=== PATIENT | male | born 1950 | race Caucasian/White ===

== ENCOUNTER 2016-05-08 17:10 | Emergency (ER) | payer OTHER ==
--- NOTE | 2016-05-08 18:07 | PROVIDER DOCUMENTATION ---
HPI-EENT General - General Source: patient - History of Present Illness-EENT General EENT Location: reports: eye (R) Onset/Duration: reports: this morning - Eyes Eye Problem Symptoms: reports: decrease vision Apparent Injury?: No Eye Problem Context: reports: none <Deysi Gramajo - Last Filed: 05/08/16 18:03> <Aleisha Helms - Last Filed: 05/08/16 18:57> - General Chief Complaint: Eye Complaint Stated Complaint: "POSS STROKE" Time Seen by Provider: 05/08/16 17:45 Allergies/Adverse Reactions: Patient Allergies Allergy/AdvReac Type Severity Reaction Status Date / Time No Known Allergies Allergy Verified 12/10/13 17:01 Home Medications: Home Medication List Medication Instructions Recorded Confirmed Last Taken Type Warfarin [Coumadin] 2 mg DAILY 12/10/13 12/10/13 12/07/13 History Aspirin 81 mg PO DAILY #0 tab.chew 12/11/13 Unknown Rx Nicotine Patch [Nicoderm Patch] 21 mg TD DAILY #0 patch.td24 12/11/13 Unknown Rx Pravastatin Sodium [Pravachol] 20 mg PO DAILY #30 tablet 12/11/13 Unknown Rx Warfarin [Coumadin] 2 mg PO HS #30 tablet 12/11/13 Unknown Rx Prednisone 20 mg PO BID #10 tablet 05/08/16 Unknown Rx Sulfamethoxazole/Trimethoprim 2 each PO BID #40 tablet 05/08/16 Unknown Rx [Bactrim Ds Tablet] - History of Present Illness-EENT General Nature of Presenting Problem: 65 yo M presents to the ER with complaint of loss of vision in R eye since awakening. Denies any HAIDER associated or any hx of a-fib. (Deysi Gramajo) Review of Systems - Adult - REVIEW OF SYSTEMS - ADULT Constitutional: denies: chills, fever Eyes: reports: decreased vision. denies: eye pain Ears, Nose, Mouth & Throat: reports: no symptoms reported Cardiovascular: denies: chest pain, palpitations Respiratory: denies: cough, shortness of breath Gastrointestinal: reports: no symptoms reported Genitourinary: reports: no symptoms reported Musculoskeletal: reports: no symptoms reported Integumentary: reports: no symptoms reported Neurological: denies: dizziness/vertigo, headache/migraines Psychiatric: reports: no symptoms reported Endocrine: reports: no symptoms reported Hematologic/Lymphatic: reports: no symptoms reported Allergic/Immunologic: reports: no symptoms reported All Other Systems: Reviewed and Negative <Deysi Gramajo - Last Filed: 05/08/16 18:03> Past History - Adult - PAST MEDICAL HISTORY-ADULT Review of Records: reports: Nursing Assessment Review, Medications Reviewed Cardiovascular: reports: hyperlipidemia Endocrine/Immune: reports: other (blood clots in femoral arteries) - PRIOR SURGERIES/PROCEDURES Surgical/Procedure History: reports: other (femoral artery graft) - IMMUNIZATION STATUS Childhood Immunizations: See Nurse Assessment Flu Vaccine: See Nurse Assessment <Deysi Graamjo - Last Filed: 05/08/16 18:03> Physical Exam- EENT - Physical Exam EENT General Appearance: alert, no apparent distress Eye Exam: right eye: vision changes (states it is black and blurry, can hardly see), other (while covering L eye, pt was able to track mirror with R eye), bilateral eye: PERRL, EOMI Ear Exam: bilateral ear: auricle normal, canal normal, TM normal Throat Exam: normal mouth inspection, pharynx normal Neck: supple, normal inspection Respiratory: no respiratory distress, no accessory muscle use Cardiovascular: normal peripheral pulses, regular rate, rhythm Back Exam: no CVA tenderness, no vertebral tenderness Extremity: normal gait, normal inspection Integumentary: normal color, warm/dry Neurologic: grossly normal, no motor/sensory deficits Psych/Mental Status: normal mood/affect, normal thought content, normal thought process, oriented x 3 <Deysi Gramajo - Last Filed: 05/08/16 18:03> Progress - CHANGE OF SHIFT REPORT (ED Provider) Report Given and Care Transferred to:: Dr. Gerard Time of Transfer: 18:06 Items Pending: Labs <Deysi Gramajo - Last Filed: 05/08/16 18:03> - CT/MRI 1 MRI Study: Brain Impression: Normal MRI Results: right maxillary sinusitis noted <Aleisha Helms - Last Filed: 05/08/16 18:57> Departure <Dyesi Gramajo - Last Filed: 05/08/16 18:03> - Departure Time of Disposition Order: 18:57 Certified Medical Emergency: Emergent <Aleisha Helms - Last Filed: 05/08/16 18:57> - Departure DIAGNOSIS: Sinusitis Qualifiers: Sinusitis location: maxillary Chronicity: unspecified Qualified Code(s): J32.0 - Chronic maxillary sinusitis Disposition: HOME 01 Condition: Stable Additional Instructions: ED Follow Up Instructions: You have been treated by a care provider in the Emergency Department. These instructions are being provided to you so you can have an understanding of how to care for yourself upon discharge. Upon discharge from the Emergency Department, you are responsible for making arrangements for follow-up care by a physician of your choice. Take all prescribed medications as directed. Return to the Emergency Department immediately for any new or worsening symptoms. You may call the Physician Referral phone number at [phone] to obtain a list of Physicians who are taking new patients. Prescriptions: Sulfamethoxazole/Trimethoprim [Bactrim Ds Tablet] 2 each PO BID #40 tablet Prednisone 20 mg PO BID #10 tablet Referrals: Chai Arellano MD [STAFF PHYSICIAN] - Forms: Return to School/Parent Work Instructions: Sinusitis, [id number], Prednisone tablets, Sulfamethoxazole; Trimethoprim, SMX-[id number] tablets Attestation - Scribe Verification/Attestation Scribe:: Deysi Gramajo Acting as Scribe for:: Buzz Marie Scribe documention review:: This chart was documented by a scribe and accurately reflects the service the provider performed and the decisions made by the provider. <Deysi Gramajo - Last Filed: 05/08/16 18:03> - Scribe Verification/Attestation Scribe:: Aleisha Helms Acting as Scribe for:: Aba Gerard Scribe documention review:: This chart was documented by a scribe and accurately reflects the service the provider performed and the decisions made by the provider. <Aleisha Helms - Last Filed: 05/08/16 18:57> Physician Attestation
[2016-05-08 18:12] LABS: MANUAL DIFF NEEDED? NO
[2016-05-08 18:19] LABS: BASO% 0.3 % (0.0-0.8); EOS# 0.16 X1000 (0.0-0.7); EOS% 1.4 % (0.0-10.0); HEMATOCRIT 46.3 % (42.0-52.0); HEMOGLOBIN 15.4 g/dL (14.0-18.0); IMM GRAN# 0.03 X1000 (0.0-0.04); IMM GRAN% 0.3 % (0.0-0.5); LYMPH# 2.99 X1000 (1.2-3.4); LYMPH% 26.5 % (20.5-51.1); MCH 28.3 PG (27-31); MCHC 33.3 g/dL (33-37); MCV 85.1 FL (81-99); MONO# 0.87 X1000 (0.11-0.59); MONO% 7.7 % (1.7-9.3); MPV 10.3 FL (7.4-10.4); NEUT% 63.8 % (42.2-75.2); PLT 292 X1000 (130-400); RBC 5.44 XMIL (4.7-6.1)
--- NOTE | 2016-05-08 18:27 | ED EKG INTERP ---
EKG Interpretation - EKG Time of EKG reading by physician:: 17:49 EKG Read and Signed by:: Aba Gerard EKG Interpretation (*Must complete 3 of following elements*): Normal Rate: 90 Rhythm: sinus rhythm with premature atrial complexes [place]: normal
[2016-05-08 18:35] LABS: AGAP 12; ALBUMIN 3.9 g/dL (3.5-5.0); ALKALINE PHOSPHATASE 73 U/L (32-122); BUN 17 mg/dL (8-22); CHLORIDE 104 mmol/L (98-107); COSMO 276; GOT 15 U/L (10-34); GPT 12 U/L (10-44); INR 1.52 (0.86-1.15); POTASSIUM 3.9 mmol/L (3.5-5.1); PROTIME 18.5 Seconds (12.1-15.5); SODIUM 137 mmol/L (136-145); TCO2 21 mmol/L (25-35); TOTAL PROTEIN 7.2 g/dL (6.3-8.3)
--- NOTE | 2016-05-08 18:41 | EKG Report ---
Test Performed on : 05/08/2016 5:49:47 PM Test Reason : vision loss Blood Pressure : / mmHG Vent. Rate : 090 BPM Atrial Rate : 090 BPM P-R Int : 142 ms QRS Dur : 092 ms QT Int : 386 ms P-R-T Axes : 051 036 054 degrees QTc Int : 472 ms Sinus rhythm. with premature atrial complexes. Otherwise normal ECG When compared with ECG of 10-DEC-2013 22:00, premature atrial complexes. are now present Unconfirmed Result
[2016-05-08 19:03] VITALS: BP 167/98
--- NOTE | 2016-05-08 20:32 | Diag Imaging Result Document ---
PROCEDURE NAME: HEAD W/O CONTRAST - 05/08/2016 CT HEAD WITHOUT CONTRAST: COMPARISON: 12/10/2013. 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 There is no definite acute infarct given the limited sensitivity of CT versus MRI. There is no discrete intracranial mass, mass effect, or intracranial hemorrhage. There is chronic right maxillary sinusitis that is stable. Surrounding soft tissues and bony structures are essentially unremarkable, otherwise. IMPRESSION: Advanced chronic changes as described that are stable. No definite acute intracranial pathology.
== END 2016-05-08 19:09 | disposition home or self-care (01) ==
LOC: P.ED 17:10
DX: J32.0 Chronic maxillary sinusitis (principal); H53.9 Unspecified visual disturbance; E78.5 Hyperlipidemia, unspecified; Z86.718 Personal history of other venous thrombosis and embolism; Z79.899 Other long term (current) drug therapy; Z79.01 Long term (current) use of anticoagulants; Z79.82 Long term (current) use of aspirin
CPT/HCPCS: 70450; 80053; 82948; 85025; 85610; 93005

== ENCOUNTER 2018-11-19 20:07 | Inpatient (IN) ==
--- NOTE | 2018-11-19 20:12 | PROVIDER DOCUMENTATION ---
HPI-Syncope/Dizziness - General Chief Complaint: Syncope Stated Complaint: Syncope Time Seen by Provider: 11/19/18 20:15 Source: patient Allergies/Adverse Reactions: Patient Allergies Allergy/AdvReac Type Severity Reaction Status Date / Time No Known Allergies Allergy Verified 11/07/17 10:54 Home Medications: Home Medication List Medication Instructions Recorded Confirmed Last Taken Type Aspirin 81 mg PO DAILY #0 tab.chew 12/11/13 05/24/18 05/20/18 Rx Pravastatin Sodium [Pravachol] 20 mg PO DAILY #30 tablet 12/11/13 05/24/18 05/23/18 Rx Tamsulosin [Flomax] 0.4 mg PO BID 09/11/17 05/24/18 05/23/18 History Docusate Sodium [Colace] 200 mg PO QHS capsule 09/19/17 05/24/18 05/23/18 Rx Polyethylene Glycol 3350 [Miralax] 17 gm PO BID powder, packet 09/19/17 05/24/18 11/05/17 Rx Warfarin [Coumadin] 2 mg PO [id number] tablet 09/19/17 05/24/18 05/20/18 Rx Finasteride [Proscar] 5 mg PO DAILY 11/04/17 05/24/18 05/24/18 History Ciprofloxacin HCl [Cipro] 500 mg PO BID #14 tab 10/09/18 Unknown Rx - History of Present Illness-Syncope/Dizzy Nature of Presenting Problem: Patient is a 67 year old white male who takes coumadin for blood clots who presents by EMS for evaluation of syncopal episode after sitting up. Denies chest pain,SOB,melena,nausea,vomiting, or history of CAD. EMS report fingerstick glucose of 181. Prior Episodes: reports: single episode today Onset/Duration: reports: abrupt Timing: reports: gone now Position/Activity at time of episode: reports: sitting (after defacating) Context: reports: almost passed out Review of Systems - Adult - REVIEW OF SYSTEMS - ADULT Constitutional: denies: chills, fever Eyes: reports: no symptoms reported Ears, Nose, Mouth & Throat: denies: ear discharge, throat pain Cardiovascular: denies: chest pain Respiratory: denies: shortness of breath Gastrointestinal: reports: see HPI Genitourinary: reports: no symptoms reported Musculoskeletal: reports: no symptoms reported Integumentary: reports: no symptoms reported Neurological: reports: no symptoms reported Psychiatric: reports: no symptoms reported Endocrine: reports: no symptoms reported Hematologic/Lymphatic: reports: no symptoms reported Allergic/Immunologic: reports: no symptoms reported All Other Systems: Reviewed and Negative Past History - Adult - PAST MEDICAL HISTORY-ADULT Review of Records: reports: Old Records Reviewed, Nursing Assessment Review, Medications Reviewed, Social history reviewed & non-contributory. Major Childhood Illnesses: reports: denies history Cardiovascular: reports: hyperlipidemia Respiratory: reports: denies history Gastrointestinal: reports: denies history Obstetrical/Gynecological: reports: denies history Genitourinary: reports: retention, other Musculoskeletal: reports: denies history Neurological: reports: denies history Endocrine/Immune: reports: other Other Conditions: reports: denies history - PRIOR SURGERIES/PROCEDURES Surgical/Procedure History: reports: other - IMMUNIZATION STATUS Childhood Immunizations: See Nurse Assessment Flu Vaccine: See Nurse Assessment - FAMILY HISTORY Family History: reviewed, not pertinent - SOCIAL HISTORY Smoking: denies Substance Use: denies Alcohol Use Frequency: occasionally Living Situation: family Physical Exam-General - PHYSICAL EXAM-ADULT Initial Vital Signs Reviewed: Yes - CONSTITUTIONAL General Appearance: appears well, alert, no apparent distress - EYES Eyes: other (clear) - HEAD, EARS, NOSE, MOUTH & THROAT HENMT: normocephalic/atraumatic - NECK Neck: non-tender, full range of motion, supple - RESPIRATORY Respiratory: lungs clear - CARDIOVASCULAR Cardiovascular: regular rate, rhythm - GASTROINTESTINAL (ABDOMEN) Abdominal Exam: normal bowel sounds, non tender, soft - LYMPHATIC Lymphatic: no adenopathy - MUSCULOSKELETAL Back Exam: normal inspection Extremity: normal range of motion Peripheral Pulses: radial (R): 2+, radial (L): 2+ - SKIN Integumentary: normal color, normal turgor - NEUROLOGIC Neurologic: grossly normal - PSYCHIATRIC Psych/Mental Status: normal mood/affect, oriented x 3, anxious Progress - PLAN OF CARE/RESULTS Progress/Plan/Lab Results: Vital Signs - 8 hr 11/19/18 21:30 11/19/18 22:00 11/19/18 22:54 Temperature 98.1 F Pulse Rate 103 H 86 97 H Pulse Rate [Sitting] Pulse Rate [Standing] Pulse Rate [Supine] Respiratory Rate 16 16 16 Blood Pressure 106/58 119/66 134/77 Blood Pressure [Sitting] Blood Pressure [Standing] Blood Pressure [Supine] O2 Sat by Pulse Oximetry 97 96 96 11/19/18 23:22 Temperature Pulse Rate Pulse Rate [Sitting] 98 H Pulse Rate [Standing] 110 H Pulse Rate [Supine] 88 Respiratory Rate Blood Pressure Blood Pressure [Sitting] 124/81 Blood Pressure [Standing] 94/72 Blood Pressure [Supine] 128/78 O2 Sat by Pulse Oximetry Laboratory Results - last 24 hr 11/19/18 11/19/18 11/19/18 20:25 20:25 20:25 WBC 13.71 H RBC 4.90 Hgb 8.8 L Hct 31.1 L MCV 63.5 L MCH 18.0 L MCHC 28.3 L RDW Std Deviation 20.0 H Plt Count 504 H MPV 10.0 Immature Gran % (Auto) 0.3 Neut % (Auto) 78.6 H Lymph % (Auto) 12.3 L Gilchrist % (Auto) 7.1 Eos % (Auto) 1.4 Baso % (Auto) 0.3 Immature Gran # (Auto) 0.04 Neut # (Auto) 10.79 H Lymph # (Auto) 1.68 Gilchrist # (Auto) 0.97 H Eos # (Auto) 0.19 Baso # (Auto) 0.04 PT INR Sodium 139 Potassium 4.0 Chloride 104 Carbon Dioxide 19 L Anion Gap 14 BUN 21 Creatinine 1.1 Estimated GFR/1.73 m2 > 60 BUN/Creatinine Ratio 19 Glucose 135 H POC Glucose Calculated Osmolality 283 Calcium 9.4 Magnesium 1.8 Total Bilirubin 0.30 AST 43 H ALT 12 Alkaline Phosphatase 85 Creatine Kinase 103 Troponin T < 0.010 Total Protein 6.9 Albumin 3.7 Globulin 3.0 Albumin/Globulin Ratio 1.0 Stool Occult Blood Stool Occult Blood #2 Blood Type Antibody Screen Crossmatch 11/19/18 11/19/18 11/19/18 20:25 20:30 20:33 WBC RBC Hgb Hct MCV MCH MCHC RDW Std Deviation Plt Count MPV Immature Gran % (Auto) Neut % (Auto) Lymph % (Auto) Gilchrist % (Auto) Eos % (Auto) Baso % (Auto) Immature Gran # (Auto) Neut # (Auto) Lymph # (Auto) Gilchrist # (Auto) Eos # (Auto) Baso # (Auto) PT 17.2 H INR 1.34 Sodium Potassium Chloride Carbon Dioxide Anion Gap BUN Creatinine Estimated GFR/1.73 m2 BUN/Creatinine Ratio Glucose POC Glucose 150 H Calculated Osmolality Calcium Magnesium Total Bilirubin AST ALT Alkaline Phosphatase Creatine Kinase Troponin T Total Protein Albumin Globulin Albumin/Globulin Ratio Stool Occult Blood Stool Occult Blood #2 Blood Type O POSITIVE Antibody Screen NEGATIVE Crossmatch See Detail 11/19/18 11/19/18 21:10 23:54 WBC RBC Hgb 5.8 L* D Hct 21.4 L D MCV MCH MCHC RDW Std Deviation Plt Count MPV Immature Gran % (Auto) Neut % (Auto) Lymph % (Auto) Gilchrist % (Auto) Eos % (Auto) Baso % (Auto) Immature Gran # (Auto) Neut # (Auto) Lymph # (Auto) Gilchrist # (Auto) Eos # (Auto) Baso # (Auto) PT INR Sodium Potassium Chloride Carbon Dioxide Anion Gap BUN Creatinine Estimated GFR/1.73 m2 BUN/Creatinine Ratio Glucose POC Glucose Calculated Osmolality Calcium Magnesium Total Bilirubin AST ALT Alkaline Phosphatase Creatine Kinase Troponin T Total Protein Albumin Globulin Albumin/Globulin Ratio Stool Occult Blood POSITIVE A Stool Occult Blood #2 Blood Type Antibody Screen Crossmatch Orders Category Date Time Status [facility] Routine AdmDCTranf 11/19/18 22:58 Active Activity - Strict Bedrest ORDERED Care 11/19/18 22:57 Active Cardiac Monitoring DIRECTED Care 11/19/18 20:07 Active Misc. NRSG Communication Order DIRECTED Care 11/19/18 21:46 Active Orthostatic Vital Signs NOW Care 11/19/18 20:12 Active Resuscitation Status Routine Care 11/19/18 22:57 Ordered Vital Signs Order Q 4-HR ASSESS Care 11/19/18 22:57 Active Z-Document. for Tele Applied ORDERED Care 11/19/18 22:58 Active NPO Diet 11/19/18 22:59 Active CBC WITH ELECTRONIC DIFF [HEME] Stat Lab 11/19/18 20:25 Completed CK PROFILE [SP CHEM] Stat Lab 11/19/18 20:25 Completed COMPREHENSIVE METABOLIC PANEL [CHEM] Stat Lab 11/19/18 20:25 Completed HGB AND HCT [HEME] Q4H Lab 11/19/18 23:54 Completed HGB AND HCT [HEME] Q4H Lab 11/20/18 02:59 Ordered HGB AND HCT [HEME] Q4H Lab 11/20/18 06:59 Ordered LRPC (RED CELLS) [BBK] Stat Lab 11/19/18 20:25 Completed MAGNESIUM [CHEM] Stat Lab 11/19/18 20:25 Completed OCCULT BLOOD SCREEN STOOL PL Stat Lab 11/19/18 21:10 Completed PT [PROTIME WITH INR] [COAG] Stat Lab 11/19/18 20:30 Completed TROPONIN T Stat Lab 11/19/18 20:25 Completed TYPE & SCREEN [BBK] Stat Lab 11/19/18 20:25 Completed 0.9% Sodium Chloride Inj [Ns] 1,000 ml Med 11/19/18 22:57 Active IV 125 mls/hr 0.9% Sodium Chloride Inj [Ns] 1,000 ml Med 11/19/18 20:14 Discontinued IV 999 mls/hr Morphine Med 11/19/18 22:57 Active 2 mg IV Q2H PRN PRN Ondansetron [Zofran] Med 11/19/18 22:57 Active 4 mg IV Q4H PRN PRN Pantoprazole [Protonix] Med 11/19/18 21:00 Discontinued 40 mg IV BID Pantoprazole [Protonix] Med 11/20/18 09:00 Discontinued 40 mg IV BID Pantoprazole [Protonix] Med 11/19/18 21:35 Discontinued 40 mg IV NOW ONE Sodium Chloride 0.9% Med 11/19/18 23:15 Discontinued 10 ml INJ DIRECTED Sodium Chloride 0.9% Med 11/19/18 21:35 Discontinued 10 ml INJ NOW ONE Sodium Chloride 0.9% Med 11/19/18 23:02 Discontinued 10 ml INJ NOW ONE Oxygen Device Routine Oth 11/19/18 22:59 Completed Telemetry [OM.EQ] Routine Oth 11/19/18 22:57 Active EKG [EKG] Stat Ther 11/19/18 20:07 Ordered Transfer/Admit Order [TRANSFER] Routine Transfer 11/19/18 23:01 Completed Result Diagrams: 11/20/18 03:05 11/19/18 20:25 Departure - Departure Date of Disposition Decision: 11/20/18 Time of Disposition Decision: 03:30 DIAGNOSIS: GI bleed Qualifiers: GI bleed type/associated pathology: unspecified gastrointestinal hemorrhage type Qualified Code(s): K92.2 - Gastrointestinal hemorrhage, unspecified Episode of syncope Qualifiers: Syncope type: unspecified Qualified Code(s): R55 - Syncope and collapse Disposition: ADMITTED INPATIENT 09 Certified Medical Emergency: Emergent Condition: Stable - Critical Care Note This patient required my direct & personal management of CC.: Yes Total Time (mins): 135 Critical Care Statement: This patient required my direct personal management to treat or rule out processes, the absence of which, could potentiallly result in sudden, clinically significant life or limb threatening deterioration. Attestation - Physician/ JENNI Attestation Patient care was provided by Advanced Practice Provider:: No The physician spent face to face time with patient:: Yes Advanced Practice Provider documentation review:: Supervising physician onsite and consulted in the evaluation and care of this patient. The physician did have a face to face encounter with the patient.
[2018-11-19] MEDS ORDERED: NS 1,000 ML IV ONE ×2 (20:14→22:57)
[2018-11-19 20:46] LABS: BASO# 0.04 X1000 (0.0-0.2); BASO% 0.3 % (0.0-0.8); EOS# 0.19 X1000 (0.0-0.7); EOS% 1.4 % (0.0-10.0); HEMATOCRIT 31.1 % (42.0-52.0); HEMOGLOBIN 8.8 g/dL (14.0-18.0); IMM GRAN# 0.04 X1000 (0.0-0.04); IMM GRAN% 0.3 % (0.0-0.5); LYMPH# 1.68 X1000 (1.2-3.4); LYMPH% 12.3 % (20.5-51.1); MCHC 28.3 g/dL (33-37); MCV 63.5 FL (81-99); MONO# 0.97 X1000 (0.11-0.59); MONO% 7.1 % (1.7-9.3); NEUT# 10.79 X1000 (1.4-6.5); NEUT% 78.6 % (42.2-75.2); PLT 504 X1000 (130-400); WBC 13.71 X1000 (4.8-10.8)
[2018-11-19 20:54] LABS: INR 1.34; PROTIME 17.2 Seconds (11.0-16.0)
[2018-11-19 20:59] LABS: ESTIMATED GFR > 60
[2018-11-19] MEDS ORDERED: PROTONIX IV SCH (21:00)
[2018-11-19 21:12] LABS: AGAP 14; ALBUMIN 3.7 g/dL (3.5-5.0); ALKALINE PHOSPHATASE 85 U/L (32-122); BUN 21 mg/dL (8-22); CALCIUM 9.4 mg/dL (8.8-10.2); CHLORIDE 104 mmol/L (98-107); CK PROFILE 103 U/L (24-204); COSMO 283; CREATININE 1.1 mg/dL (0.7-1.2); GLUCOSE 135 mg/dL (70-104); GOT 43 U/L (10-34); GPT 12 U/L (10-44); MAGNESIUM 1.8 mg/dL (1.5-2.7); SODIUM 139 mmol/L (136-145); TCO2 19 mmol/L (25-35); TOTAL PROTEIN 6.9 g/dL (6.3-8.3)
[2018-11-19 21:24] LABS: OCCULT BLOOD 1 POSITIVE (NEGATIVE)
[2018-11-19] MEDS ORDERED: PROTONIX IV ONE (21:35)
[2018-11-19] MEDS ORDERED: SODIUM CHLORIDE 0.9% INJ ONE ×2 (21:35→23:02)
[2018-11-19] MEDS ORDERED: MORPHINE IV PRN (22:57)
[2018-11-19] MEDS ORDERED: ZOFRAN IV PRN (22:57)
[2018-11-19] MEDS ORDERED: SODIUM CHLORIDE 0.9% INJ SCH (23:15)
[2018-11-20 00:17] LABS: HEMATOCRIT 21.4 % (42.0-52.0)
[2018-11-20 00:19] LABS: HEMOGLOBIN 5.8 g/dL (14.0-18.0)
[2018-11-20 03:25] LABS: HEMATOCRIT 30.1 % (42.0-52.0); HEMOGLOBIN 8.5 g/dL (14.0-18.0)
--- NOTE | 2018-11-20 06:32 | HISTORY AND PHYSICAL ---
PRIMARY CARE PHYSICIAN: Dr. Barrera. CHIEF COMPLAINT: Dizziness. HISTORY OF PRESENTING ILLNESS: A 67-year-old male with a history of hyperlipidemia, benign prostatic hypertrophy, femoral artery thrombosis, and cerebrovascular accident who initially presented to [facility] due to patient having dizziness. The patient states that he was in the bathroom and he felt dizzy and subsequently had come to the emergency department. In the ED, he was evaluated. He had laboratories drawn that did show that he was profoundly any anemic and he was started on blood transfusion. Due to lack of subspecialist care there, he was transferred to [facility] for further evaluation and management. At the time of my examination, he had denied any fever, chills, chest pain, shortness of breath or any melanotic stools, just stated that he was dizzy. PAST MEDICAL HISTORY: Hyperlipidemia, benign prostatic hypertrophy, femoral artery thrombosis, and cerebrovascular accident. PAST SURGICAL HISTORY: Left hip surgery, femoral artery bypass. ALLERGIES: No known drug allergies. CURRENT MEDICATIONS: Aspirin 81 mg p.o. daily, Proscar 5 mg p.o. daily, pravastatin 20 mg p.o. daily, tamsulosin 0.4 mg p.o. daily, Coumadin 2 mg p.o. daily. SOCIAL HISTORY: He is a former smoker. No history of alcohol or illicit drug use. FAMILY HISTORY: No history of coronary disease. REVIEW OF SYSTEMS: A 14-point review of system as listed in HPI. Other systems negative. PHYSICAL EXAMINATION: GENERAL: Cooperative, friendly male. He is resting comfortably now. VITAL SIGNS: Temperature 98.1 degrees, pulse 77, respiration 15, blood pressure 144/85. HEENT: Atraumatic, normocephalic. Extraocular movements intact. PERRLA. NECK: No masses. CHEST: Clear to auscultation. CARDIOVASCULAR: Regular rate and rhythm. ABDOMEN: Soft, positive bowel sounds. EXTREMITIES: No edema. NEUROLOGIC: He is awake, alert, oriented x3. : No bladder distention. SKIN: Warm. LABORATORIES AND STUDIES: WBCs 13.71, hemoglobin 5.8, hematocrit 21.4, platelets 504,000. INR 1.34. Sodium 139, potassium 4.0, chloride 104, CO2 is 19, BUN is 21, creatinine is 1.1, glucose is 135. ASSESSMENT: A 67-year-old male with a history of hyperlipidemia, benign prostatic hypertrophy, and cerebrovascular accident who initially had presented to the emergency department due to concerns of dizziness. He was evaluated at [facility] and he was found to be profoundly anemic. He was started on blood transfusion and transferred to [facility] for further evaluation and management. 1. Anemia, suspected blood loss. 2. Gastrointestinal bleed. 3. Hyperlipidemia. 4. History of cerebrovascular accident. 5. Chronic anticoagulation therapy. PLAN: 1. We will admit the patient to ICU. 2. We will keep patient NPO. 3. Monitor hemoglobin and hematocrit 4. We will finish his blood transfusion. 5. Consult Gastroenterology. 6. We will hold home medications for now. 7. We will hold his anticoagulation. 8. We will monitor ProTime and INR. 9. We will put patient on deep venous thrombosis prophylaxis with sequential compression devices. 10. We will continue to follow and reassess, make further recommendations based on patient's clinical course. cc: Jaswinder Ortiz MD
[2018-11-20 07:04] LABS: HEMATOCRIT 32.6 % (42.0-52.0); HEMOGLOBIN 10.2 g/dL (14.0-18.0)
[2018-11-20 07:04] LABS: URINE SOURCE CATH
[2018-11-20 07:06] LABS: BILIRUBIN URINE NEGATIVE (NEGATIVE); BLOOD URINE SMALL (NEGATIVE); COLOR ORANGE; GLUCOSE URINE NEGATIVE (NEGATIVE); KETONE URINE NEGATIVE (NEGATIVE); LEUKOCYTES URINE LARGE (NEGATIVE); NITRITE URINE NEGATIVE (NEGATIVE); PH URINE 6.5; PROTEIN URINE 50 mg/dL (NEGATIVE); SP GRAVITY URINE 1.024; TURBIDITY URINE HAZY (CLEAR); UROBILINOGEN URINE NORMAL (NORMAL)
[2018-11-20 07:08] LABS: UR EPITHELIAL CELLS <10 /HPF (<10); URINE BACTERIA 2+ /HPF; URINE WBC TNTC /HPF (<10)
[2018-11-20 07:30] LABS: URINE YEAST NONE SEEN
[2018-11-20 07:51] LABS: HEMATOCRIT 33.6 % (42.0-52.0); HEMOGLOBIN 10.1 g/dL (14.0-18.0)
[2018-11-20 08:02] LABS: INR 1.52; PROTIME 18.6 Seconds (11.0-16.0)
[2018-11-20 08:10] LABS: HEMOGLOBIN A1C 5.2 % (4.8-6.0)
[2018-11-20 08:12] LABS: IRON SATURATION 32 %; TIBC 295 ug/dL; TOTAL IRON 95 ug/dL (53-167); UNBOUND IRON 200 ug/dL (112-346)
[2018-11-20 08:13] LABS: AGAP 9; BUN 20 mg/dL (8-22); CALCIUM 7.9 mg/dL (8.8-10.2); CHLORIDE 111 mmol/L (98-107); COSMO 281; CREATININE 0.9 mg/dL (0.7-1.2); ESTIMATED GFR > 60; GLUCOSE 88 mg/dL (70-104); POTASSIUM 4.2 mmol/L (3.5-5.1); SODIUM 140 mmol/L (136-145); TCO2 20 mmol/L (25-35)
[2018-11-20] MEDS ORDERED: PROTONIX IV SCH (09:00)
[2018-11-20] MEDS ORDERED: SODIUM CHLORIDE 0.9% INJ ONE (12:10)
[2018-11-20] MEDS ORDERED: SODIUM CHLORIDE 0.9% INJ PRN (12:17)
[2018-11-20] MEDS: PROTONIX IV SCH (12:46)
--- NOTE | 2018-11-20 13:12 | PROGRESS NOTE ---
DATE: 11/20/2018 BRIEF PROGRESS NOTE: Patient admitted with dizziness, fatigue, found to be markedly anemic. Likely suspected GI bleed with acute and chronic blood-loss anemia. Transfused 2 units with reasonable increase in hemoglobin. Initial hemoglobin 5.8 this morning. It is up to 10.1. The patient reportedly on Coumadin at home, but INR only 1.5. Holding blood thinners currently given Suspected GI bleed. The patient reports feeling much better after transfusion. Awaiting GI recommendations. Patient had no large volume blood loss, although FOBT was positive. Reasonable increase with transfusion. Stable to move to the floor. Continue Rocephin for possible UTI pending culture results. MTDD
[2018-11-20 13:45] LABS: BASO# 0.03 X1000 (0.0-0.2); BASO% 0.3 % (0.0-0.8); EOS# 0.21 X1000 (0.0-0.7); EOS% 2.3 % (0.0-10.0); HEMATOCRIT 33.3 % (42.0-52.0); HEMOGLOBIN 9.6 g/dL (14.0-18.0); IMM GRAN# 0.02 X1000 (0.0-0.04); IMM GRAN% 0.2 % (0.0-0.5); LYMPH# 2.49 X1000 (1.2-3.4); LYMPH% 27.2 % (20.5-51.1); MCH 19.5 PG (27-31); MCHC 28.8 g/dL (33-37); MCV 67.5 FL (81-99); MONO# 0.64 X1000 (0.11-0.59); NEUT# 5.75 X1000 (1.4-6.5); PLT 391 X1000 (130-400); RBC 4.93 XMIL (4.7-6.1); RDW 22.3 % (11.5-14.5); WBC 9.14 X1000 (4.8-10.8)
[2018-11-20 13:57] LABS: ANISOCYTOSIS 2+; BANDS 2 % (0-1); EOS 2 % (1-10); LYMPHS 16 % (21-51); MICROCYTOSIS 2+; MONO 4 % (1-9); SEGS 74 % (42-75)
[2018-11-20 13:58] LABS: HYPOCHROM 2+
[2018-11-20 16:33] LABS: BASO# 0.03 X1000 (0.0-0.2); BASO% 0.3 % (0.0-0.8); EOS# 0.22 X1000 (0.0-0.7); EOS% 2.4 % (0.0-10.0); HEMATOCRIT 36.8 % (42.0-52.0); HEMOGLOBIN 10.8 g/dL (14.0-18.0); IMM GRAN# 0.02 X1000 (0.0-0.04); IMM GRAN% 0.2 % (0.0-0.5); LYMPH# 2.58 X1000 (1.2-3.4); MCH 19.7 PG (27-31); MCHC 29.3 g/dL (33-37); MCV 67.2 FL (81-99); MONO# 0.84 X1000 (0.11-0.59); MONO% 9.1 % (1.7-9.3); MPV 9.8 FL (7.4-10.4); NEUT# 5.52 X1000 (1.4-6.5); PLT 394 X1000 (130-400); RBC 5.48 XMIL (4.7-6.1); RDW 22.4 % (11.5-14.5); WBC 9.21 X1000 (4.8-10.8)
[2018-11-20] MEDS: ROCEPHIN 1 GM in NS 50 ML IV SCH (17:01)
[2018-11-20 17:29] LABS: BASO 1 % (0-1); EOS 2 % (1-10); LYMPHS 29 % (21-51); MONO 7 % (1-9); SEGS 61 % (42-75)
[2018-11-20 17:30] LABS: HYPOCHROM 4+
[2018-11-20 17:31] LABS: POIKILOCYTOSIS 1+; TARGET CELLS OCCASIONAL
[2018-11-20 17:32] LABS: ANISOCYTOSIS 1+; OVALOCYTES OCCASIONAL
--- NOTE | 2018-11-20 18:35 | CONSULTATION ---
DATE OF CONSULTATION: 11/20/2018 REASON FOR CONSULT: GI bleed. HISTORY OF PRESENT ILLNESS: Mr. Mccauley is a 67-year-old male who came to the ER yesterday with GI bleeding. He stated that he was feeling weak, dizzy, and drowsy. He had flu- like symptoms. His hemoglobin on admission was 8.8 and 31.8. Today, his hemoglobin is 10.1 and 33.6. He states that he is still feeling weak. He had 1 bowel movement today and denies noticing any blood in the stools. He has denied nausea and vomiting today. PAST MEDICAL HISTORY: Hyperlipidemia, BPH, femoral artery thrombosis, and CVA. ALLERGIES: No known drug allergies. PAST SURGICAL HISTORY: Both hip surgery, renal bypass, femoral artery bypass. MEDICATIONS: Aspirin, pravastatin, Flomax, MiraLAX, warfarin, Colace, and Proscar. SOCIAL HISTORY: He was a former smoker, but denies having alcohol and illicit drugs. Lives with his , has got 2 kids and is retired. FAMILY HISTORY: No GI malignancies. REVIEW OF SYSTEM: As per HPI. Otherwise, 12 point review of systems is negative. PHYSICAL EXAMINATION: Vital Signs: Temperature is 98.7 degrees, pulse is 86, respirations are 20, blood pressure is 144/88 Oxygen saturation is 96% on room air. Weight 169.3 pounds, BMI 24.3 kg per meter square. General: He is alert,oriented x3, but lethargic and he is resting in bed and in no acute distress. HEENT: Pale conjunctivae. No icterus. PERRL. Neck: Supple. Lungs: Clear to auscultation in anterior and posterior pierson. Cardiovascular: Regular rate and rhythm. No rubs, murmurs or gallops heard on auscultation. Abdomen: Soft, nontender, nondistended. Bowel sounds heard in all 4 quadrants and active. Extremities: No cyanosis, clubbing, or edema noted. 2+ pedal pulses noted bilaterally. Neurological: Alert, oriented x3. Nonfocal. Cranial nerves 2-12 grossly intact. LABORATORY DATA: WBCs 13.7, RBCs 4.9, hemoglobin is 10.1, hematocrit is 33.6, platelet count is 504,000. PT is 18.6, INR 1.42. Chemistry: Sodium is 140, potassium is 4.2, chloride is 101, carbon dioxide is 20, anion gap is 9, BUN is 20, creatinine is 0.9, glucose is 150, calcium is 7.9, iron is 95, TIBC is 295. Urine protein shows trace of protein, small trace of blood, large leukocyte. ASSESSMENT: 1. Gastrointestinal bleed. 2. Anemia. 3. Syncope. 4. Chronic anticoagulant therapy. 5. Hx CVA PLAN: Patient is currently NPO. We will advance him to clear liquid diet for now and will be NPO past midnight. We will be doing an EGD tomorrow with Dr Aguilar, we have also put order to transfuse 2 units of packed red blood cells if hematocrit is less than 27 and check periodic CBCs. We have ordered Protonix for the patient. He is on antiemetics, antibiotics and IV fluids. We will continue to monitor CBC and BMP. Further plan of care will be discussed after the EGD findings. Risks, benefits and alternatives of the procedure has been discussed with the patient, patient acknowledges understanding of the plan of care. This plan of care has been discussed with Dr. Campos and the patient. Thank you for your consult. Please call us for any further questions or concerns. Dictated by SAMAN Russell for Diego Campos MD cc: Diego Campos MD I have seen the patient myself and agree with the above plan of care. Please call us with any further questions or concerns. [facility]
[2018-11-20 22:17] LABS: BASO# 0.03 X1000 (0.0-0.2); BASO% 0.3 % (0.0-0.8); EOS# 0.29 X1000 (0.0-0.7); HEMATOCRIT 34.7 % (42.0-52.0); HEMOGLOBIN 10.3 g/dL (14.0-18.0); IMM GRAN# 0.02 X1000 (0.0-0.04); IMM GRAN% 0.2 % (0.0-0.5); LYMPH# 3.24 X1000 (1.2-3.4); LYMPH% 33.7 % (20.5-51.1); MCH 19.8 PG (27-31); MCHC 29.7 g/dL (33-37); MCV 66.9 FL (81-99); MONO# 0.76 X1000 (0.11-0.59); MONO% 7.9 % (1.7-9.3); MPV 10.2 FL (7.4-10.4); NEUT# 5.27 X1000 (1.4-6.5); NEUT% 54.9 % (42.2-75.2); PLT 398 X1000 (130-400); RBC 5.19 XMIL (4.7-6.1); RDW 22.4 % (11.5-14.5); WBC 9.61 X1000 (4.8-10.8)
[2018-11-21] MEDS: PROTONIX IV SCH ×2 (01:01→14:40)
[2018-11-21 07:57] LABS: INR 1.37; PROTIME 17.1 Seconds (11.0-16.0)
[2018-11-21 08:06] LABS: BASO# 0.02 X1000 (0.0-0.2); BASO% 0.3 % (0.0-0.8); EOS# 0.27 X1000 (0.0-0.7); EOS% 3.7 % (0.0-10.0); HEMATOCRIT 35.5 % (42.0-52.0); HEMOGLOBIN 10.3 g/dL (14.0-18.0); IMM GRAN# 0.02 X1000 (0.0-0.04); IMM GRAN% 0.3 % (0.0-0.5); LYMPH# 1.69 X1000 (1.2-3.4); LYMPH% 23.3 % (20.5-51.1); MCH 19.4 PG (27-31); MONO# 0.58 X1000 (0.11-0.59); MPV 10.6 FL (7.4-10.4); NEUT# 4.66 X1000 (1.4-6.5); NEUT% 64.4 % (42.2-75.2); PLT 411 X1000 (130-400); RDW 22.5 % (11.5-14.5); WBC 7.24 X1000 (4.8-10.8)
[2018-11-21 08:09] LABS: AGAP 14; ANISOCYTOSIS 2+; BUN 12 mg/dL (8-22); CALCIUM 8.4 mg/dL (8.8-10.2); CHLORIDE 108 mmol/L (98-107); COSMO 284; CREATININE 0.9 mg/dL (0.7-1.2); ESTIMATED GFR > 60; GLUCOSE 86 mg/dL (70-104); HYPOCHROM 1+; LYMPHS 32 % (21-51); MICROCYTOSIS 2+; MONO 8 % (1-9); POTASSIUM 4.3 mmol/L (3.5-5.1); SEGS 60 % (42-75); SODIUM 143 mmol/L (136-145); TCO2 21 mmol/L (25-35)
[2018-11-21] MEDS ORDERED: VERSED ONE (09:07)
--- NOTE | 2018-11-21 09:27 | ENDOSCOPY OPERATIVE NOTE ---
[facility] ENDOSCOPY OPERATIVE NOTE , PATIENT: Benson Mccauley ADMISSION DATE: 11/21/2018 MR#: [id number] : 1950 [id number] EGD PROCEDURE REPORT PROCEDURE DATE: 11/21/2018 SURGEON: Buzz Aguilar MD STATUS: inpatient BIOPROCESS DEVELOPMENT ENGINEER: PREOPERATIVE DIAGNOSIS: The patient is a 67 yr old male here for an EGD due to iron deficiency anemi a. PROCEDURE PERFORMED: EGD, diagnostic MEDICATIONS: Per Anesthesia TOPICAL ANESTHETIC: none CONSENT: The patient understands the risks and benefits of the procedure and understands that these r isks include, but are not limited to: sedation, allergic reaction, infection, perforation and/or bleeding. Alternative means of evaluation and treatment include, among others: physical exam, x-rays, and/or surgical intervention. The patient elects to proceed with this endoscopic procedure. HISORY AND PHYSICAL: 11/21/2018 function. Hand hygiene and appropriate measures for infection prevention was taken. After the risks, benefits and alternatives of the procedure were thoroughly explained, Informed consent was verified, confirmed and timeout was successfully executed by the treatment team. The patient was anesthetized with topical anesthesia and the XV68-[id number] ([id number]) endoscope was introduced through the mouth and advanced to the second portion of the duoden um. Retroflexion was performed in the stomach and revealed no abnormalities. The gastroscope was then slowly withdraw n and removed. ESOPHAGUS: The mucosa of the esophagus appeared normal. The z-line was noted at 40cm from the incis ors. The z-line appeared normal. STOMACH: The stomach was normal. 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 Cau rom was applied to the site with monopolar probe. With good treatment effect. SPECIMENS REMOVED: No ADVERSE EVENTS: There were no complications. POSTOPERATIVE DIAGNOSIS: ESOPHAGUS: The mucosa of the esophagus appeared normal. The z-line was noted at 40cm from the incis ors. The z-line appeared normal. STOMACH: The stomach was normal. 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 Cau rom was applied to the site with monopolar probe. With good treatment effect. RECOMMENDATIONS: Clear liquid diet Prep with 4L Golytely starting at 1800 NPO after MN Plan for diagnostic colonoscopy tomorrow REPEAT EXAM: Buzz Aguilar MD eSigned: Buzz Aguilar MD 11/21/2018 9:26 AM cc: PATIENT NAME: Benson Mccauley MR#: [id number]
[2018-11-21] MEDS: ROCEPHIN 1 GM in NS 50 ML IV SCH (14:39)
--- NOTE | 2018-11-21 15:28 | PROGRESS NOTE ---
DATE: 11/21/2018 SUBJECTIVE: This patient is resting comfortably in bed. No pain or any kind of issues during the night. He had an endoscopy done today that showed a normal stomach and esophagus. He has a small angiodysplastic lesion with no bleeding found in the second part of the duodenum. Cautery was applied to the site with monopolar probe with good treatment effect. The patient was sent to the recovery room and then to the medical floor in stable medical condition. His hemoglobin upon admission was around 5.8. He received 2 units of blood and now the hemoglobin is around 10.3. The Gastroenterology Department will prepare this patient for a colonoscopy tomorrow. OBJECTIVE: Vital Signs: Temperature 97.4 degrees, pulse 61, respiratory rate 21, blood pressure 168/69, oxygen saturation 98 on room air. HEENT: Head normocephalic. No trauma. PERRLA. Neck: Supple. No JVD. No masses. Central trachea. Chest: Clear to auscultation. No wheezing. No rales. Abdomen: Soft, nontender, nondistended. No hepatosplenomegaly. Extremities: No edema. No clubbing. No cyanosis. Neurological: Alert and oriented x3. No focal deficits. LABORATORY: WBC 7.2, hemoglobin 10.3, hematocrit 35.5, MCV 67, platelet count 411,000. Sodium 143, potassium 4.3, chloride 101, bicarbonate 21, BUN 12, creatinine 0.9, glucose 86, calcium 8.4. ASSESSMENT AND PLAN: 1. Gastrointestinal bleed, status post endoscopy with normal esophagus, stomach. They found an angiodysplastic lesion at the second portion of the duodenum that was cauterized already. This patient will be prepared for colonoscopy tomorrow. 2. Blood-loss anemia, status post 2 packed red blood cells. Hemoglobin seems to be more stable. MCV is low though, so probably this patient has been having some bleeding going on for a little bit. 3. History of cerebrovascular accident. Continue with the same management. He has been on chronic anticoagulation as well, which has been stopped. 4. History of femoral artery thrombosis. We will continue with anticoagulation in the near future. 5. Benign prostatic hypertrophy. Continue with same management. 6. Hyperlipidemia. Continue home medications. cc: Philippe Joseph MD
[2018-11-21] MEDS ORDERED: GOLYTELY PO ONE (18:00)
[2018-11-22] MEDS: PROTONIX IV SCH ×2 (00:12→15:35)
[2018-11-22 08:02] LABS: HEMATOCRIT 36.3 % (42.0-52.0); HEMOGLOBIN 10.8 g/dL (14.0-18.0)
[2018-11-22 08:12] LABS: INR 1.41; PROTIME 17.5 Seconds (11.0-16.0)
[2018-11-22] MEDS ORDERED: FENTANYL ONE (08:26)
[2018-11-22] MEDS ORDERED: DIPRIVAN 1% ONE (08:26)
--- NOTE | 2018-11-22 08:46 | ENDOSCOPY OPERATIVE NOTE ---
[facility] ENDOSCOPY OPERATIVE NOTE , PATIENT: Benson Mccauley ADM DATE: 11/22/2018 MR #: [id number] : 1950 COLONOSCOPY PROCEDURE REPORT PROCEDURE DATE: 11/22/2018 SURGEON: Buzz Aguilar MD STATUS: inpatient CUSTOMER ACCOUNT EXECUTIVE: PREOPERATIVE DIAGNOSIS: The patient is a 67 yr old male here for a colonoscopy due to anemia, non-sp ecific. PROCEDURE PERFORMED: Colonoscopy, diagnostic; incomplete MEDICATIONS: Per Anesthesia PREP TYPE: GoLytely
--- NOTE | 2018-11-22 11:58 | PROVIDER PROGRESS NOTE ---
Progress Note Brief GI Progress note Spoke with patient and family at bedside. Family expressed concern that patient would not follow-up for outpatient colonoscopy as suggested. He did not complete prep yesterday. We will reattempt colonoscopy tomorrow. Patient was instructed to do his best o finish prep today with family assistance. He will sip throughout the day. Will post for colonoscopy tomorrow with Dr. Campos.
--- NOTE | 2018-11-22 13:00 | PROGRESS NOTE ---
DATE: 11/22/2018 SUBJECTIVE: This patient went for a colonoscopy today, but he did not take the treatment correctly during the night, and his bowel was not prepared. We will prepare this patient today again. His is at the bedside, and she will help with that. I will continue with a liquid diet and NPO after midnight. OBJECTIVE: Vital Signs: Temperature 98.6 degrees, pulse 65, respiratory rate 14, blood pressure 165/80, oxygen saturation 97% on room air. HEENT: Head normocephalic. No trauma. PERRLA. Neck: Supple. No JVD. No masses. Central trachea. Chest: Clear to auscultation. Abdomen: Soft, nontender, and nondistended. Extremities: No edema. Neurological: Alert. No focal deficits. LABORATORY: Hemoglobin 10.8, hematocrit 36.3, PT 17.5, and INR 1.4. ASSESSMENT AND PLAN: 1. GI bleed, status post endoscopy with normal esophagus and stomach. They found an angiodysplastic lesion at the second portion of the duodenum that was cauterized during the procedure. This patient will be prepared for colonoscopy tomorrow again since his bowel prep was not done correctly. 2. Blood-loss anemia status post 2 PRBC's. Hemoglobin seems to be stable. 3. History of CVA, continue with the same management. He has been on chronic anticoagulation as well. 4. History of femoral artery thrombosis. We will continue with anticoagulation once we are done with the endoscopy. 5. BPH. Continue with same management. 6. Hyperlipidemia. Continue home medications. cc: Philippe Joseph MD
[2018-11-22] MEDS: ROCEPHIN 1 GM in NS 50 ML IV SCH (15:35)
[2018-11-22] MEDS ORDERED: GOLYTELY PO ONE (18:00)
[2018-11-23] MEDS: PROTONIX IV SCH ×2 (01:16→11:14)
[2018-11-23] MEDS ORDERED: XYLOCAINE-MPF 2% ONE (07:54)
[2018-11-23] MEDS ORDERED: DIPRIVAN 1% ONE (07:54)
[2018-11-23 08:35] LABS: HEMATOCRIT 37.7 % (42.0-52.0); HEMOGLOBIN 10.8 g/dL (14.0-18.0)
--- NOTE | 2018-11-23 10:03 | ENDOSCOPY OPERATIVE NOTE ---
[facility] ENDOSCOPY OPERATIVE NOTE , PATIENT: Benson Mccauley ADM DATE: MR #: [id number] : 1950 COLONOSCOPY PROCEDURE REPORT PROCEDURE DATE: 11/23/2018 SURGEON: Diego Campos MD STATUS: inpatient BONUS CLERK: Peggy Sigala and Arabella Duran PREOPERATIVE DIAGNOSIS: The patient is a 67 yr old male here for a colonoscopy due to GI bleed admis key Hb 5.8g/dl s/p 2 Units PRBcs; Anemia, Constipation, Chronic anticoagulation for h/o CVA; EGD showed AVM in duodenum s/p Cautery. PROCEDURE PERFORMED: Colonoscopy, diagnostic MEDICATIONS: Per Anesthesia PREP TYPE: GoLytely
[2018-11-23] MEDS: ICAR-C PO SCH ×2 (11:13→20:45)
[2018-11-23] MEDS: CENTRUM SILVER PO SCH (11:13)
[2018-11-23] MEDS: ROCEPHIN 1 GM in NS 50 ML IV SCH (16:09)
--- NOTE | 2018-11-23 18:22 | PROGRESS NOTE ---
DATE: 11/22/2018 SUBJECTIVE: The patient is resting in bed. He is somnolent. He is answering some of my questions. He had an endoscopy done today and they found diverticulosis, multiple polyps in the colon, and hemorrhoids, but no signs of bleeding. Hemoglobin and hematocrit have been stable. Hopefully, this patient will be discharged in the morning. OBJECTIVE: Vital Signs: Temperature 97.9 degrees, pulse 67, respiratory rate 16, blood pressure 123/57, oxygen saturation 98 on room air. HEENT: Head normocephalic. No trauma. PERRLA. Neck: Supple. No JVD. No masses. Central trachea. Chest: Clear to auscultation. Abdomen: Soft, nontender, nondistended. No hepatosplenomegaly. Extremities: No edema, no clubbing, no cyanosis. Neurological: This patient is sleepy. He is arousable. He is able to say his name, but falling asleep right away. LABORATORY: Hemoglobin 10.8, hematocrit 37.7. ASSESSMENT AND PLAN: 1. Gastrointestinal bleed, status post upper endoscopy that showed normal esophagus and stomach. They found angiodysplastic lesion at the level of the second portion of the duodenum that was cauterized during the procedure. Also, they did a colonoscopy today that showed diverticulosis, polyps, and mild hemorrhoids. I will follow their recommendations. They want to see him in 4 weeks to be able to remove the polyps. 2. Blood loss anemia, status post 2 packed red blood cells. Hemoglobin and hematocrit seem to be stable. 3. History of cerebrovascular accident. Continue with the same management. He has been on chronic anticoagulation as well. 4. History of femoral artery thrombosis. Continue with anticoagulation. I will start this today. 5. Benign prostatic hypertrophy. Continue with same treatment. 6. Hyperlipidemia. Continue with home medications. cc: Philippe Joseph MD
[2018-11-23] MEDS: MIRALAX PO SCH (20:45)
[2018-11-23] MEDS ORDERED: COUMADIN PO SCH (21:00)
[2018-11-24] MEDS: PROTONIX IV SCH (00:13)
[2018-11-24 07:19] LABS: HEMATOCRIT 35.6 % (42.0-52.0); HEMOGLOBIN 11.2 g/dL (14.0-18.0)
[2018-11-24 07:45] LABS: AGAP 14; BUN 10 mg/dL (8-22); CHLORIDE 105 mmol/L (98-107); COSMO 277; ESTIMATED GFR > 60; GLUCOSE 98 mg/dL (70-104); SODIUM 139 mmol/L (136-145); TCO2 20 mmol/L (25-35)
[2018-11-24 07:59] VITALS: BP 172/82
[2018-11-24] MEDS: ICAR-C PO SCH (09:15)
[2018-11-24] MEDS: CENTRUM SILVER PO SCH (09:15)
[2018-11-24] MEDS: MIRALAX PO SCH (09:15)
--- NOTE | 2018-11-24 16:15 | GASTROENTEROLOGY PROGRESS NOTE ---
DATE: 11/24/2018 SUBJECTIVE: Mr. Mccauley 67 year old male resting in bed, Denied any nausea, vomiting and bowel movements today. He said he was feeling much better and was ready to go home. OBJECTIVE: Vital Signs: Temperature is 98.6 degrees. Pulse is 70. Respirations are 16. Blood pressure is 172/82. Oxygen saturation is 95% on room air. Weight 169.1 pounds, BMI 24.3 kg per meter square. General: He is alert, oriented x3,and in no acute distress. HEENT: Pale conjunctivae. No icterus. PERRL. Neck: Supple. Lungs: Clear to auscultation. No abnormal breath sounds heard. Cardiovascular: Regular rate and rhythm. No murmurs, rubs, or gallops heard on auscultation. Abdomen: Soft, nontender, distended. Active bowel sounds heard in all 4 quadrants. Extremities: No cyanosis, clubbing, or edema noted, 2+ pedal pulsess present bilaterally. Neurologic: He is alert, oriented x3. LABORATORY: WBC 7.2, RBC 5.30, hemoglobin 11.2, hematocrit 35.6, platelet count is 411,000. His PT is 17.5, INR is 1.41. Sodium is 139, potassium is 4.0, chloride is 105, carbon dioxide is 20, anion gap is 14, BUN is 10, creatinine is 1.0, glucose is 98, calcium is 9.0. Iron is 95, total iron-binding capacity is 295. His urine culture was showing Enterococcus faecalis. ASSESSMENT AND PLAN: 1. Gastrointestinal bleed. 2. Blood loss anemia. 3. History of cerebrovascular accident. 4. History of femoral artery thrombosis. 5. Benign prostatic hypertrophy. 6. Hyperlipidemia. 7. Hypertension. PLAN: An Colonoscopy done yesterday, showed nonbleeding diverticulosis, hemorrhoids, and sessile polyps. We will continue the patient with PPI 40 mg p.o. for 6 to 8 weeks, iron, and we will follow up as an outpatient for return colonoscopy. Patient will be getting discharged today.This plan was discussed with Dr. Aguilar. Please call us for any further questions or concerns. Dictated by SAMAN Russell for Buzz Aguilar MD Physician Attestation I have seen and examined the patient. I have discussed and reviewed the the note by Jazmine DAVISON and agree with findings and plan as documented. In brief, Mr. Benson Mccauley is a 67 year old man admitted with symptomatic ISABEL found to have non-bleeding AVM in the small bowel that was cauterized on EGD. Colonoscopy showed 3 small colonic polyps, hemorrhoids, and diverticulosis. No overt bleeding during this hospitalization. Recommend once daily PPI, iron replacement therapy, and repeat outpatient colonoscopy to follow-up hgb and repeat colonoscopy for polypectomy. Avoid blood thinners and NSAIDs. Patient discharged today. MTDD
--- NOTE | 2018-11-24 19:21 | DISCHARGE SUMMARY ---
ADMISSION DATE: 11/20/2018 DISCHARGE DATE: 11/24/2018 DIAGNOSES: 1. Gastrointestinal bleed status post upper endoscopy that showed normal esophagus and stomach with angiodysplastic lesion at the level of the 2nd portion of the duodenum status post cauterization. Colonoscopy revealed diverticulosis, polyps and mild hemorrhoids. 2. Blood loss anemia with 2 units of packed cells transfused with hemoglobin and hematocrit stable at 11.2 and 35.6. 3. History of cerebrovascular accident. 4. History of femoral artery thrombosis on chronic anticoagulation. 5. Benign prostatic hypertrophy. 6. Hyperlipidemia. CONSULTS: Dr. Campos, gastroenterology. PROCEDURES: 1. EGD 11/22/2018 small angiodysplastic lesion with no bleeding in the 2nd part of duodenum status post cautery applied with monopolar probe, good treatment effect. Normal mucosa of the esophagus, stomach was normal . 2. Colonoscopy 11/23/2018 revealed moderate nonbleeding diverticulosis noted in the sigmoid colon, small internal grade 1 hemorrhoids, three 5-9 mm polyps were found in the transverse and sigmoid colon none resected. HOSPITAL COURSE: Mr. Mccauley presented to the emergency room complaining of dizziness. He was found to have a hemoglobin of 5.8 with hematocrit 21.4 for which she was transfused 2 units of packed cells and labs have stayed stable at 10 to 11 and 34 to 37. He underwent EGD and colonoscopy as stated above. Diet has been advanced to GI soft which he was eating 50 to 100 percent tolerating well. Thankfully he is ready for discharge. DISCHARGE PHYSICAL EXAM: Blood pressure is 170/80 with a heart rate of 70, respirations 18, temperature 98.6 degrees with room air saturations 95 to 98 percent. Cardiovascular: Regular rate and rhythm. S1 and S2 are appreciated. He has no lower extremity edema. Peripheral pulses are palpable x4 extremities. Pulmonary: Breath sounds are clear. No increased work of breathing noted. Gastrointestinal: Abdomen soft, nontender, nondistended. Bowel sounds in all 4 quadrants. Neurologic: He is alert and oriented. Skin: Is warm and dry. DISCHARGE MEDICATIONS: 1. Coumadin as directed. 2. Flomax 0.4 mg p.o. b.i.d. 3. Pravachol 20 mg p.o. daily. 4. MiraLAX 17 g p.o. b.i.d. 5. Protonix 40 mg p.o. daily. 6. Centrum Silver 1 p.o. daily. 7. Icar C 1 p.o. b.i.d. 8. Proscar 5 mg p.o. daily. 9. Colace 200 mg p.o. at bedtime. 10. Aspirin 81 mg daily. FOLLOWUP: Dr. Diego Campos 12/25/2018 at 1:45 p.m.. He was instructed to avoid any NSAIDs including ibuprofen, Advil, Motrin, Aleve, Naprosyn, naproxen, aspirin or any [id number] medications that may contain these. He has been instructed to call to be seen sooner or return to the emergency room for syncope, dizziness, chest pain, palpitations, any shortness of breath, cough, fever, chills, temperature greater than 101, any nausea, vomiting, diarrhea, constipation, black or bloody vomitus or stools, hematuria, dysuria, frequency, urgency or for any questions or concerns that he may have. He is being discharged home in stable condition with family members. TIME SPENT: Greater than 30 minutes. Dictated by SAMAN Santos for Philippe Joseph MD cc: SAMAN Santos MD
== END 2018-11-24 11:34 | disposition home or self-care (01) | DRG 378 ==
LOC: P.ED 20:07 → SUATTDRO 11-20 00:04 → 4N 11-20 00:04 → P.ICU 11-20 02:21 → ICU 11-20 02:23 → 3N 11-20 14:59
PROVIDERS: ATTEND Internal Medicine
PROC: EN.HEAT (2018-11-21 09:04)

== ENCOUNTER 2019-04-26 19:34 | Inpatient (IN) ==
[2019-04-26] MEDS ORDERED: ROCEPHIN 1 GM in NS 50 ML IV ONE (20:02)
[2019-04-26 20:59] LABS: BASO# 0.05 X1000 (0.0-0.2); BASO% 0.3 % (0.0-0.8); EOS# 0.13 X1000 (0.0-0.7); EOS% 0.8 % (0.0-10.0); HEMATOCRIT 40.9 % (42.0-52.0); HEMOGLOBIN 12.5 g/dL (14.0-18.0); IMM GRAN# 0.06 X1000 (0.0-0.04); IMM GRAN% 0.4 % (0.0-0.5); LYMPH# 1.71 X1000 (1.2-3.4); LYMPH% 10.2 % (20.5-51.1); MCH 22.9 PG (27-31); MCHC 30.6 g/dL (33-37); MCV 74.8 FL (81-99); MONO# 1.15 X1000 (0.11-0.59); MONO% 6.8 % (1.7-9.3); MPV 10.5 FL (7.4-10.4); NEUT# 13.74 X1000 (1.4-6.5); NEUT% 81.5 % (42.2-75.2); PLT 420 X1000 (130-400); RBC 5.47 XMIL (4.7-6.1); WBC 16.84 X1000 (4.8-10.8)
[2019-04-26 21:06] LABS: AGAP 15; BUN 18 mg/dL (8-22); CHLORIDE 105 mmol/L (98-107); COSMO 286; CREATININE 0.9 mg/dL (0.7-1.2); ESTIMATED GFR > 60; GLUCOSE 125 mg/dL (70-104); SODIUM 142 mmol/L (136-145); TCO2 22 mmol/L (25-35)
[2019-04-26 21:08] LABS: URINE SOURCE CATH
[2019-04-26 21:19] LABS: BILIRUBIN URINE NEGATIVE (NEGATIVE); BLOOD URINE MODERATE (NEGATIVE); COLOR YELLOW; GLUCOSE URINE NEGATIVE (NEGATIVE); KETONE URINE NEGATIVE (NEGATIVE); LEUKOCYTES URINE NEGATIVE (NEGATIVE); NITRITE URINE NEGATIVE (NEGATIVE); PH URINE 6.5; PROTEIN URINE NEGATIVE (NEGATIVE); SP GRAVITY URINE 1.012; TURBIDITY URINE CLEAR (CLEAR); UROBILINOGEN URINE NORMAL (NORMAL)
[2019-04-26 21:20] LABS: UR EPITHELIAL CELLS <10 /HPF (<10); URINE BACTERIA 1+ /HPF; URINE RBC <10 /HPF (<10); URINE WBC <10 /HPF (<10)
[2019-04-26] MEDS ORDERED: NS 1,000 ML IV ONE ×2 (21:29→23:44)
[2019-04-26] MEDS ORDERED: LR 1,000 ML IV ONE (21:30)
[2019-04-26] MEDS ORDERED: MORPHINE IV ONE (21:41)
[2019-04-26] MEDS ORDERED: ZOFRAN IV ONE (21:41)
[2019-04-26 22:12] LABS: INR 1.49; PROTIME 18.8 Seconds (11.0-16.0)
[2019-04-26 22:38] LABS: INFLUENZA A NEGATIVE (NEGATIVE); INFLUENZA B NEGATIVE (NEGATIVE)
--- NOTE | 2019-04-26 23:02 | PROVIDER DOCUMENTATION ---
This chart was entered by Catherine Kellogg Scribe, acting as scribe for Juanito Duncan MD. HPI-Male Problem - General Chief Complaint: Male Stated Complaint: MALE Time Seen by Provider: 04/26/19 19:55 Source: patient Allergies/Adverse Reactions: Patient Allergies Allergy/AdvReac Type Severity Reaction Status Date / Time No Known Allergies Allergy Verified 04/26/19 19:43 Home Medications: Home Medication List Medication Instructions Recorded Confirmed Last Taken Type Aspirin 81 mg PO DAILY #0 tab.chew 12/11/13 04/26/19 05/20/18 Rx Pravastatin Sodium [Pravachol] 20 mg PO DAILY #30 tablet 12/11/13 04/26/19 05/23/18 Rx Tamsulosin [Flomax] 0.4 mg PO BID 09/11/17 04/26/19 05/23/18 History Docusate Sodium [Colace] 200 mg PO QHS capsule 09/19/17 04/26/19 05/23/18 Rx Polyethylene Glycol 3350 [Miralax] 17 gm PO BID powder, packet 09/19/17 04/26/19 11/05/17 Rx Warfarin [Coumadin] 2 mg PO [id number] tablet 09/19/17 04/26/19 05/20/18 Rx - History of Present Illness-Male Nature of Presenting Problem: Pt is a 68 yowm with c/o of morales catheter being plugged up and lower abdominal pain. Pt states that he had his morales catheter changed last at PCP but not he thinks it is plugged up and that he has an infection. Pt has hx of urinary retention with chronic morales catheterization. Pt is alert and nontoxic in appearance. Location of Complaint: reports: suprapubic Radiation: reports: none Quality of Pain: reports: aching Severity in ED: reports: mild Onset/Duration: reports: abrupt, 1-3 hours ago Timing: reports: still present Context/Activities at Onset: reports: light activity Urinary Symptoms: reports: retention Associated Symptoms: reports: denies symptoms Recently seen or treated by another doctor?: Yes (last at PCP) Review of Systems - Adult - REVIEW OF SYSTEMS - ADULT Constitutional: denies: chills, fever Eyes: reports: no symptoms reported Ears, Nose, Mouth & Throat: reports: no symptoms reported Cardiovascular: denies: chest pain, syncope Respiratory: denies: cough, shortness of breath Gastrointestinal: reports: see HPI, abdominal pain. denies: nausea, vomiting Genitourinary: reports: see HPI, urinary retention Musculoskeletal: reports: no symptoms reported Integumentary: reports: no symptoms reported Neurological: reports: no symptoms reported Psychiatric: reports: no symptoms reported Endocrine: reports: no symptoms reported Hematologic/Lymphatic: reports: no symptoms reported Allergic/Immunologic: reports: no symptoms reported All Other Systems: Reviewed and Negative Past History - Adult - PAST MEDICAL HISTORY-ADULT Review of Records: reports: Nursing Assessment Review, Medications Reviewed, Social history reviewed & non-contributory. Major Childhood Illnesses: reports: denies history Cardiovascular: reports: hyperlipidemia Respiratory: reports: denies history Gastrointestinal: reports: denies history Obstetrical/Gynecological: reports: denies history Genitourinary: reports: retention, other Musculoskeletal: reports: denies history Neurological: reports: denies history Endocrine/Immune: reports: other Other Conditions: reports: denies history - PRIOR SURGERIES/PROCEDURES Surgical/Procedure History: reports: other - IMMUNIZATION STATUS Childhood Immunizations: See Nurse Assessment Flu Vaccine: See Nurse Assessment - FAMILY HISTORY Family History: reviewed, not pertinent - SOCIAL HISTORY Smoking: quit less than 1 year Substance Use: denies Living Situation: family () Physical Exam-General - PHYSICAL EXAM-ADULT Initial Vital Signs Reviewed: Yes (Temp 97.5; HR 121; O2 93 L RA) - CONSTITUTIONAL General Appearance: appears well, alert, no apparent distress - EYES Eyes: PERRL/EOMI, pink conjunctivae - HEAD, EARS, NOSE, MOUTH & THROAT HENMT: normocephalic/atraumatic, moist mucous membranes, normal ENT inspection - NECK Neck: non-tender, full range of motion, supple, normal inspection - RESPIRATORY Respiratory: chest non-tender, lungs clear, normal breath sounds, no pleuratic chest pain, no respiratory distress, no accessory muscle use - CARDIOVASCULAR Cardiovascular: normal peripheral pulses, no edema, no murmur, tachycardia - GASTROINTESTINAL (ABDOMEN) Abdominal Exam: normal bowel sounds, soft - LYMPHATIC Lymphatic: no adenopathy - MUSCULOSKELETAL Back Exam: normal inspection, no CVA tenderness, no vertebral tenderness Extremity: normal range of motion, non-tender, normal gait, normal inspection, no pedal edema, no calf tenderness, normal capillary refill - SKIN Integumentary: normal color, normal turgor, warm/dry - NEUROLOGIC 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, grossly normal, no motor/sensory deficits - PSYCHIATRIC Psych/Mental Status: normal mood/affect, normal thought content, normal thought process, oriented x 3, disheveled Progress - PLAN OF CARE/RESULTS Progress/Plan/Lab Results: Vital Signs - 8 hr 04/26/19 19:36 Temperature 97.5 F L Pulse Rate 121 H Respiratory Rate 18 Blood Pressure 137/74 O2 Sat by Pulse Oximetry 93 L Laboratory Results - last 24 hr 04/26/19 04/26/19 04/26/19 20:15 20:15 20:15 WBC 16.84 H RBC 5.47 Hgb 12.5 L Hct 40.9 L MCV 74.8 L MCH 22.9 L MCHC 30.6 L RDW Std Deviation 19.0 H Plt Count 420 H MPV 10.5 H Immature Gran % (Auto) 0.4 Neut % (Auto) 81.5 H Lymph % (Auto) 10.2 L [place] % (Auto) 6.8 Eos % (Auto) 0.8 Baso % (Auto) 0.3 Immature Gran # (Auto) 0.06 H Neut # (Auto) 13.74 H Lymph # (Auto) 1.71 [place] # (Auto) 1.15 H Eos # (Auto) 0.13 Baso # (Auto) 0.05 PT INR Sodium 142 Potassium 4.0 Chloride 105 Carbon Dioxide 22 L Anion Gap 15 BUN 18 Creatinine 0.9 Estimated GFR/1.73 m2 > 60 BUN/Creatinine Ratio 20 Glucose 125 H Calculated Osmolality 286 Calcium 9.0 Plasma Lactate 3.1 H Urine Source Urine Color Urine Turbidity Urine pH Ur Specific Triangle Urine Protein Ur Glucose (Stick) Ur Ketones (Stick) Urine Blood Urine Nitrite Urine Bilirubin Urobilinogen Dipstick Urine Leukocytes Urine WBC (Auto) Urine RBC (Auto) U Epithel Cells (Auto) Urine Bacteria (Auto) Influenza A (Rapid) Influenza B (Rapid) Group A Strep Rapid 04/26/19 04/26/19 04/26/19 20:15 21:00 21:55 WBC RBC Hgb Hct MCV MCH MCHC RDW Std Deviation Plt Count MPV Immature Gran % (Auto) Neut % (Auto) Lymph % (Auto) [place] % (Auto) Eos % (Auto) Baso % (Auto) Immature Gran # (Auto) Neut # (Auto) Lymph # (Auto) [place] # (Auto) Eos # (Auto) Baso # (Auto) PT 18.8 H INR 1.49 Sodium Potassium Chloride Carbon Dioxide Anion Gap BUN Creatinine Estimated GFR/1.73 m2 BUN/Creatinine Ratio Glucose Calculated Osmolality Calcium Plasma Lactate Urine Source CATH Urine Color YELLOW Urine Turbidity CLEAR Urine pH 6.5 Ur Specific Triangle 1.012 Urine Protein NEGATIVE Ur Glucose (Stick) NEGATIVE Ur Ketones (Stick) NEGATIVE Urine Blood MODERATE A Urine Nitrite NEGATIVE Urine Bilirubin NEGATIVE Urobilinogen Dipstick NORMAL Urine Leukocytes NEGATIVE Urine WBC (Auto) <10 Urine RBC (Auto) <10 U Epithel Cells (Auto) <10 Urine Bacteria (Auto) 1+ Influenza A (Rapid) NEGATIVE Influenza B (Rapid) NEGATIVE Group A Strep Rapid 04/26/19 22:14 WBC RBC Hgb Hct MCV MCH MCHC RDW Std Deviation Plt Count MPV Immature Gran % (Auto) Neut % (Auto) Lymph % (Auto) [place] % (Auto) Eos % (Auto) Baso % (Auto) Immature Gran # (Auto) Neut # (Auto) Lymph # (Auto) [place] # (Auto) Eos # (Auto) Baso # (Auto) PT INR Sodium Potassium Chloride Carbon Dioxide Anion Gap BUN Creatinine Estimated GFR/1.73 m2 BUN/Creatinine Ratio Glucose Calculated Osmolality Calcium Plasma Lactate Urine Source Urine Color Urine Turbidity Urine pH Ur Specific Triangle Urine Protein Ur Glucose (Stick) Ur Ketones (Stick) Urine Blood Urine Nitrite Urine Bilirubin Urobilinogen Dipstick Urine Leukocytes Urine WBC (Auto) Urine RBC (Auto) U Epithel Cells (Auto) Urine Bacteria (Auto) Influenza A (Rapid) Influenza B (Rapid) Group A Strep Rapid NEGATIVE Orders Category Date Time Status Morales Cath Insertion ORDERED Care 04/26/19 20:01 Active NEWS Score 2-4:Order NEWS Lactate Series NOW Care 04/26/19 19:40 Active Saline Loc NOW Care 04/26/19 20:01 Active CHEST-2 VIEWS [RAD] Stat Exams 04/26/19 21:35 Taken BASIC METABOLIC PANEL [CHEM] Stat Lab 04/26/19 20:15 Completed BLOOD CULTURE [BLDCUL] Stat Lab 04/26/19 20:20 Results CBC WITH ELECTRONIC DIFF [HEME] Stat Lab 04/26/19 20:[address] Stat Lab 04/26/19 22:[address] Stat Lab 04/26/19 21:55 Completed LACTATE, PLASMA [CHEM] Lab 04/26/19 20:15 Completed LACTATE, PLASMA [CHEM] Lab 04/26/19 22:45 Uncollected LACTATE, PLASMA [CHEM] Lab 04/27/19 01:45 Uncollected PROTIME WITH INR [COAG] Stat Lab 04/26/19 20:15 Completed URINALYSIS W/POSS RFLX CULT [URINALYSIS] Stat Lab 04/26/19 21:00 Completed 0.9% Sodium Chloride Inj [Ns] 1,000 ml Med 04/26/19 21:29 Discontinued IV 999 mls/hr CefTRIAXONE [Rocephin] 1 gm Med 04/26/19 20:02 Discontinued 0.9% Sodium Chloride Inj [Ns] 50 ml IV NOW Lactated Ringers Inj [Lr] 1,000 ml Med 04/26/19 21:30 Discontinued IV 999 mls/hr Morphine Med 04/26/19 21:41 Discontinued 4 mg IV NOW ONE Ondansetron [Zofran] Med 04/26/19 21:41 Discontinued 4 mg IV NOW ONE Result Diagrams: 04/26/19 20:15 04/26/19 20:15 - XRAY 1 XRAY Study: Chest Impression: Normal (study per Dr. Duncan) - CONSULTS/PCP/HOSPITALIST Notification #1 *Consult/PCP/Hospitalist*: YASIR Chang Time Discussed: 22:59 Consult Disposition: Admit Departure - Departure Date of Disposition Decision: 04/26/19 Time of Disposition Decision: 22:58 DIAGNOSIS: Lactic acidosis Sepsis Qualifiers: Sepsis acute organ dysfunction status: unspecified Leukocytosis Qualifiers: Leukocytosis type: unspecified Qualified Code(s): D72.829 - Elevated white blood cell count, unspecified Disposition: ADMITTED INPATIENT 09 Certified Medical Emergency: Emergent Condition: Stable Referrals and Follow-Ups: Di Han PA [Primary Care Provider] - - Critical Care Note This patient required my direct & personal management of CC.: No Attestation - Physician/ JENNI Attestation Patient care was provided by Advanced Practice Provider:: No The physician spent face to face time with patient:: Yes Advanced Practice Provider documentation review:: Supervising physician onsite and consulted in the evaluation and care of this patient. The physician did have a face to face encounter with the patient. This chart was documented by the indicated scribe, (Catherine Kellogg, Lisy) and accurately reflects the services I performed and decisions made by me, Juanito Duncan MD, as attested by the provider's signature.
[2019-04-26] MEDS ORDERED: ZOFRAN IV PRN (23:44)
[2019-04-26] MEDS ORDERED: TYLENOL PO PRN (23:44)
[2019-04-26] MEDS ORDERED: MORPHINE IV PRN (23:44)
--- NOTE | 2019-04-27 07:56 | Diag Imaging Result Doc PS360 ---
EXAM: CHEST-2 VIEWS INDICATION: short of breath TECHNIQUE: 2 views COMPARISON: 09/12/2017 FINDINGS: The lungs are grossly clear. There is no discrete pleural fluid collection or pneumothorax. The cardiomediastinal silhouette and central vasculature are grossly unremarkable. IMPRESSION: No evidence of acute pathology by plain radiograph. Electronically signed by Fidel Brothers 04/27/2019 7:54 AM
[2019-04-27 10:22] LABS: HEMATOCRIT 37.2 % (42.0-52.0); HEMOGLOBIN 11.2 g/dL (14.0-18.0); MCH 23.1 PG (27-31); MCHC 30.1 g/dL (33-37); MCV 76.9 FL (81-99); MPV 10.4 FL (7.4-10.4); RBC 4.84 XMIL (4.7-6.1); WBC 11.39 X1000 (4.8-10.8)
[2019-04-27 10:35] LABS: AGAP 11; BUN 13 mg/dL (8-22); CALCIUM 8.2 mg/dL (8.8-10.2); CHLORIDE 108 mmol/L (98-107); COSMO 285; CREATININE 0.8 mg/dL (0.7-1.2); ESTIMATED GFR > 60; GLUCOSE 135 mg/dL (70-104); POTASSIUM 3.6 mmol/L (3.5-5.1); SODIUM 142 mmol/L (136-145); TCO2 23 mmol/L (25-35)
--- NOTE | 2019-04-27 18:48 | HISTORY AND PHYSICAL ---
CHIEF COMPLAINT: "My catheter is plugged up." HISTORY OF PRESENT ILLNESS: This is a 68-year-old gentleman with a history of urinary retention with a chronic Saha catheter, who presented to the emergency room stating that his catheter was not draining, and he had suprapubic pain. He denied any fevers or chills, any palpitations. In the emergency room, Saha catheter was replaced. The patient stated his suprapubic pain resolved. On arrival to the emergency room, the patient's heart rate was 121. This was at 7:30 p.m. Next set of vital signs were at 12:30, and he had a heart rate of 84 with a blood pressure of 157/79. He was noted to have a white blood cell count of 16 and a lactate of 3 with repeat lactates of 1.4 and 1.2. PAST MEDICAL HISTORY: 1. Urinary retention with chronic indwelling Saha. 2. Hyperlipidemia. 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 4. History of CVA. 5. History of GI bleed. PAST SURGICAL HISTORY: Left hip surgery, femoral artery bypass. SOCIAL HISTORY: He lives with his . He denies alcohol, tobacco, or illicit drug use. FAMILY HISTORY: Positive for hypertension. He denies any coronary artery disease. ALLERGIES: No known drug allergies. HOME MEDICATIONS: A list will be obtained by the nursing staff and once verified will be restarted as appropriate. REVIEW OF SYSTEMS: Discussed with the patient with pertinent positives stated in the HPI. He denied any syncope, dizziness, any chest pain or palpitations, any fevers or chills, cough, any nausea, vomiting, diarrhea, constipation, black or bloody vomitus or stools, hematuria or dysuria. PHYSICAL EXAMINATION: GENERAL: This is a 68-year-old gentleman who is sitting up on the bed in no distress. VITAL SIGNS: Blood pressure is 148/84 with heart rate of 73, respirations are 18, temperature is 97.8 degrees oral with room air saturations 96% to 98%. HEENT: Head is normocephalic, atraumatic. Mucous membranes are moist. NECK: Supple with trachea midline. CARDIOVASCULAR: Regular rate and rhythm. S1 and S2 appreciated. No murmurs. He has no lower extremity edema. He denies any calf tenderness. PULMONARY: Breath sounds are clear. No increased work of breathing noted. Chest rise and fall symmetric with respiration. Chest wall is nontender to palpation. GASTROINTESTINAL: Abdomen is soft, nontender, nondistended with bowel sounds in all 4 quadrants. NEUROLOGIC: He is alert and oriented x3. SKIN: Warm and dry. LABORATORY DATA: WBC is 16.8 with hemoglobin 12.5, hematocrit 40.9 and platelets of 420,000. Sodium is 142, potassium 4, BUN 18, creatinine 0.9, glucose of 125. Urinalysis is essentially negative. Influenza A/B and rapid strep are negative. Blood cultures and throat culture are pending. IMAGING: Chest x-ray revealed no evidence of acute pathology. ASSESSMENT AND PLAN: 1. Benign prostatic hypertrophy with bladder outlet obstruction. Patient with a chronic indwelling Saha. 2. Replacement of indwelling Saha due to obstruction. 3. Suprapubic pain, resolved. 4. History of cerebrovascular accident, aware. 5. 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 We will continue Coumadin. PLAN: The patient has been admitted to the medical floor and placed on telemetry, which we will continue. monitor input and output. identify his home medications and continue these as appropriate. CBC and a BMP in the morning. Daily PT/INR. Have the patient up in a chair with meals and p.r.n. continue the patient's bowel regimen. 8. Further treatments pending hospital course. Plan was discussed with Dr. Silveira. Dictated by SAMAN Santos for Solomon Silveira MD cc: SAMAN Santos MD [facility]
[2019-04-27] MEDS ORDERED: COUMADIN PO SCH (21:00)
[2019-04-27] MEDS ORDERED: COLACE PO SCH (21:00)
[2019-04-27] MEDS ORDERED: PRAVACHOL PO SCH (21:00)
[2019-04-27] MEDS ORDERED: MIRALAX PO PRN (21:00)
[2019-04-27] MEDS: FLOMAX PO SCH (22:14)
--- NOTE | 2019-04-28 01:22 | HISTORY AND PHYSICAL ---
ADDENDUM: Patient seen and examined by myself. Full note dictated and discussed with nurse practitioner. Patient presented to the hospital with abdominal pain. Subsequently diagnosed with a clogged Saha catheter. He just recently had a Saha placed. His Saha was irrigated, currently is draining well. He had an elevated white count at 16, glucose at 125 and elevated lactic acid. We are going to admit to the hospital. We will follow. Place on antibiotics. Further orders as needed. cc: Solomon Silveira MD
[2019-04-28 06:02] LABS: HEMATOCRIT 36.4 % (42.0-52.0); HEMOGLOBIN 10.8 g/dL (14.0-18.0); MCH 22.6 PG (27-31); MCHC 29.7 g/dL (33-37); MCV 76.3 FL (81-99); MPV 10.2 FL (7.4-10.4); RBC 4.77 XMIL (4.7-6.1); RDW 18.9 % (11.5-14.5); WBC 10.04 X1000 (4.8-10.8)
[2019-04-28 06:10] LABS: INR 1.98; PROTIME 23.7 Seconds (11.0-16.0)
[2019-04-28 06:27] LABS: AGAP 10; BUN 11 mg/dL (8-22); CHLORIDE 107 mmol/L (98-107); COSMO 279; CREATININE 0.6 mg/dL (0.7-1.2); ESTIMATED GFR > 60; GLUCOSE 102 mg/dL (70-104); POTASSIUM 3.9 mmol/L (3.5-5.1); SODIUM 140 mmol/L (136-145); TCO2 23 mmol/L (25-35)
[2019-04-28 08:25] VITALS: BP 142/79
[2019-04-28] MEDS ORDERED: ASPIRIN PO SCH (09:00)
[2019-04-28] MEDS: FLOMAX PO SCH (09:21)
--- NOTE | 2019-04-28 20:26 | DISCHARGE SUMMARY ---
ADMISSION DATE: 04/26/2019 DISCHARGE DATE: 04/28/2019 ADDENDUM: Patient seen and examined by myself. Full note dictated and discussed with nurse practitioner. On discharge, the patient was awake, alert, in no distress. States overall he is feeling better. He was admitted to the hospital secondary to his Saha being clogged. He had an elevated white count and tachycardia. After adjusting his Saha catheter and flushing, all of his symptoms resolved. Currently, he is awake, alert, and in no distress. He will be discharged home. He will follow up outpatient with his urologist. cc: Solomon Silveira MD
== END 2019-04-28 10:49 | disposition home or self-care (01) | DRG 699 ==
LOC: P.ED 19:34 → P.EDIPHOLD 04-27 01:04 → P.MEDSURG 04-27 07:07
PROVIDERS: ATTEND Family Medicine